=== PATIENT | female | born 1940 | race Caucasian/White ===

== ENCOUNTER → 2021-05-25 11:46 | Outpatient (BNVA) | payer MEDICARE, SELFPAY | PROVIDERS: PCP Nurse Practitioner Family; Visit Provider Nurse Practitioner Family | DX: R07.89 Other chest pain (principal); E78.5 Hyperlipidemia, unspecified; I10 Essential (primary) hypertension | CPT/HCPCS: 80053; 80061 ==

== ENCOUNTER → 2021-07-07 09:13 | Outpatient (BNVA) | payer MEDICARE, SELFPAY | PROVIDERS: PCP Nurse Practitioner Family; Referring Provider Physical Medicine & Rehabilitation; Visit Provider Anesthesiology Pain Medicine | DX: M51.16 Intervertebral disc disorders with radiculopathy, lumbar region (principal); M79.604 Pain in right leg; Z87.891 Personal history of nicotine dependence | CPT/HCPCS: 99204 ==

== ENCOUNTER → 2021-07-23 13:13 | Outpatient (BNVA) | payer MEDICARE, SELFPAY | PROVIDERS: PCP Nurse Practitioner Family; Visit Provider Internal Medicine | DX: R07.89 Other chest pain (principal); J44.9 Chronic obstructive pulmonary disease, unspecified; I10 Essential (primary) hypertension; Z87.891 Personal history of nicotine dependence | CPT/HCPCS: 93005; 99204 ==

== ENCOUNTER 2021-08-20 08:43 | Outpatient (CLI) | payer MEDICARE, SELFPAY ==
[2021-08-20 09:10] VITALS: BMI 31.6
--- NOTE | 2021-08-20 09:10 | ECG_ITS ---
[facility] Test Date: 2021-08-20 Pat Name: Jenifer Shannon Department: Room: Gender: Female Karate Teacher: : 1940 Requested By: Ronald Olvera Order Number: [id number] Boy MD: Ronald Olvera M.D. Interpretive Statements NAME OF STUDY: LEXISCAN SESTAMIBI STRESS TEST INDICATION: [Chest Pain, ] Procedure: At the baseline, the blood pressure was 172/97 mmHg with a heart rate of 70 bpm. The electrocardiogram showed normal sinus rhythm, normal axis with normal ST and T's. The Lexiscan was infused over a period of 20 seconds. A total of 0.4 mg of Lexiscan was infused. The stress phase was continued for a total of 5 minutes. Heart rate was at the end of stress phase was 79 bpm and a blood pressure of 137/73 mmHg. The EKG at the peak infusion revealed since normal sinus rhythm with no significant ST-T wave changes. Sestamibi was injected 20 seconds after the Lexiscan infusion. Blood pressure at the end of recovery phase was 139/72 mmHg with a heart rate of 79 bpm. Conclusion: 1. Normal EKG response to Lexiscan infusion 2. No Lexiscan induced chest pain or cardiac arrhythmia. 3. Normal blood pressure and heart rate response. 4. Sestamibi/sestamibi perfusion scan pending; see separate report. Electronically Signed On 08-25-2021 14:23:35 CDT by Ronald Olvera M.D. [id number]
--- NOTE | 2021-08-20 09:11 | NMCV_ITS ---
NM lewis perf SPECT r/s* [id number] Jenifer Shannon Age: 81 Gender: F : 1940 Exam Date: 08/20/2021 10:27 Ordering Phys: Ronald Olvera M.D ([email or web address]) Technologist: LUCIA Mishra Exam Location: [facility] Indications: SHORTNESS OF BREATH STRESS TEST [facility] IMAGE PROTOCOL Rest/Stress 1 Lexiscan Day Radiopharmaceutical Dose (mCi) Administration Site Administered by Rest: Tc-99m 10.6 IV LUCIA Early Sestamibi Stress:Tc-99m 32.4 IV LUCIA Early Sestamibi Rest: 20-Aug-2021 60 Discovery 630 Stress: 20-Aug-2021 30 Discovery 630 0.4mg Lexiscan. Images obtained in supine and prone position. SPECT RESULTS Technical Quality: Excellent Raw Data Analysis: Normal Image Corrections: No attenuation or motion correction applied Summed Stress Score: 5 Summed Rest Score: 2 Summed Difference Score: 3 PERFUSION FINDINGS There is small to medium sized partially reversible perfusion defect seen in apical lateral and anterolateral ferrer. 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 FUNCTIONAL RESULTS (calculated via Gated SPECT) Stress Image LV EF (%): 74 Stress EDV (mL):68 TID: 1.06 Stress ESV (mL):18 FUNCTIONAL FINDINGS: There is normal left ventricular systolic function. IMPRESSIONS 1. 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 2. LV systolic function is normal Ronald Olvera MD (Electronically Signed) Final Date: 21 August 2021 23:58 S
[2021-08-20] MEDS: regadenoson 0.4 Mg/5 ml Syringe IVP (10:57)
[2021-08-20 11:20] VITALS: BP 138/73; PULSE 82
--- NOTE | 2021-08-20 12:15 | USCV_ITS ---
Jenifer Shannon Age: 81 Gender: F : 1940 Exam Date: 08/20/2021 09:25 Ordering Phys: Ronald Olvera M.D ([email or web address]) Technologist: Exam Location: [facility] [place] Indication: chest pain BP: 185 / 91 HR: 85 Rhythm: Sinus Technical Quality: Adequate MEASUREMENTS (Male / Female) Normal Values 2D ECHO LV Diastolic Diameter PLAX 3.9 cm 4.2 - 5.9 / 3.9 - 5.3 cm LV Systolic Diameter PLAX 2.4 cm IVS Diastolic Thickness 0.9 cm 0.6 - 1.0 / 0.6 - 0.9 cm IVS Systolic Thickness 1.8 cm LVPW Diastolic Thickness 1.3 cm 0.6 - 1.0 / 0.6 - 0.9 cm LVPW Systolic Thickness 1.5 cm LVOT Diameter 2.0 cm LV Ejection Fraction 2D Teich 69.9 % LV Ejection Fraction MOD 2C 77.6 % LV Ejection Fraction 2C AL 78.4 % LA Diameter 3.1 cm IVC Diameter 1.0 cm M-MODE Aortic Annulus Diameter 3.3 cm LA Ao Ratio MM 1.0 MV E Point Septal Separation 1.0 cm DOPPLER AV Peak Velocity 127.0 cm/s LVOT Peak Velocity 87.0 cm/s AV Area Cont Eq vti 1.8 cm squared AV Area Cont Eq pk 2.2 cm squared MV Area PHT 5.0 cm squared Mitral E to A Ratio 0.5 MV E' Velocity 27.5 cm/s Mitral E to MV E' Ratio 8.1 Mitral E to LV E' Lateral Ratio 8.4 Mitral E to LV E' Septal Ratio 8.0 TR Peak Velocity 148.7 cm/s TR Peak Gradient 8.8 mmHg TV Peak E Velocity 89.0 cm/s Right Atrial Pressure 3.0 mmHg Pulmonary Artery Systolic Pressu 11.8 mmHg FINDINGS Left Ventricle Normal left ventricular size. LV systolic function is normal with EF of 55-60%. No regional wall motion abnormalities. Grade 1 diastolic dysfunction Right Ventricle The right ventricle is normal in size and function. Right Atrium The right atrium is normal in size. Left Atrium The left atrium is normal in size. Mitral Valve Structurally normal mitral valve without significant stenosis or prolapse. There is no mitral regurgitation. Aortic Valve Structurally normal aortic valve without significant sclerosis or stenosis. There is no aortic regurgitation. Tricuspid Valve Structurally normal tricuspid valve without significant stenosis. Mild tricuspid regurgitation. Pulmonary artery systolic pressure is normal. Pulmonic Valve Not well visualized. Pericardium Normal pericardium without effusion. Aorta Normal ascending aorta dimension. IVC CONCLUSIONS LV systolic fucntion is normal with EF of 55-60% Grade 1 diastolic dysfunction Mild tricuspid regurgitation No comparison studies are available Ronald Olvera MD (Electronically Signed) Final Date: 22 August 2021 11:29 S
== END 2021-08-20 08:44 | disposition home or self-care (01) ==
LOC: CDL 08:51
PROVIDERS: PCP Nurse Practitioner Family; Visit Provider Internal Medicine
DX: R07.9 Chest pain, unspecified (principal); R06.02 Shortness of breath
CPT/HCPCS: 78452; 93017; 93306; A9500; J2785

== ENCOUNTER → 2021-10-07 13:32 | Outpatient (BNVA) | payer MEDICARE, SELFPAY | PROVIDERS: PCP Nurse Practitioner Family; Visit Provider Anesthesiology Pain Medicine | DX: M54.16 Radiculopathy, lumbar region (principal) | CPT/HCPCS: 64483; J1100; J3490 ==

== ENCOUNTER → 2021-10-27 10:20 | Outpatient (BNVA) | payer MEDICARE, SELFPAY | PROVIDERS: PCP Nurse Practitioner Family; Visit Provider Anesthesiology Pain Medicine | DX: M79.604 Pain in right leg (principal); M51.16 Intervertebral disc disorders with radiculopathy, lumbar region | CPT/HCPCS: 99214 ==

== ENCOUNTER → 2022-11-22 08:38 | Outpatient (BNVA) | payer MEDICARE, SELFPAY | PROVIDERS: PCP Nurse Practitioner Family; Visit Provider Nurse Practitioner Family | DX: I10 Essential (primary) hypertension (principal); E55.9 Vitamin D deficiency, unspecified; H54.7 Unspecified visual loss; H61.20 Impacted cerumen, unspecified ear | CPT/HCPCS: 80053; 80061; 82306 ==

== ENCOUNTER → 2022-11-25 15:54 | Outpatient (BNVA) | payer MEDICARE, SELFPAY | PROVIDERS: PCP Nurse Practitioner Family; Visit Provider Nurse Practitioner Family | DX: R73.9 Hyperglycemia, unspecified (principal) | CPT/HCPCS: 83036 ==

== ENCOUNTER 2023-01-24 13:24 | Outpatient (CLI) | payer MEDICARE, SELFPAY ==
--- NOTE | 2023-01-24 13:32 | MR_ITS ---
WS: [id number] MRI HEAD WITHOUT CONTRAST TECHNIQUE: Sagittal T1, T2 axial, T2 axial FLAIR, axial and coronal T1 images, axial susceptibility w eighted imaging, axial diffusion weighted images, and coronal T2 images were obtained. CLINICAL INFORMATION: H54.7 - Unspecified visual loss COMPARISON: None. FINDINGS: No evidence of restricted diffusion to suggest acute ischemia. Ventricular system and basilar cistern s are patent. Advanced small vessel changes with moderate parenchymal volume loss. Small vessel rene es in the rachael. Tiny lacunar infarcts or prominent perivascular spaces RIGHT basal ganglia. Normal po sterior fossa. Normal vascular flow voids at the skull base. No extra-axial fluid collections. No jesse dence of mass or mass effect. Mild mucosal thickening in the mastoid air cells. Normal normal optic chiasm and pituitary infundibulum. Moderate symmetric atrophy temporal lobes gemma ocampal formations. 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 IMPRESSION: 1. No evidence of restricted diffusion to suggest acute ischemia. 2. Advanced small vessel changes with moderate parenchymal volume loss. 3. No hemosiderin on susceptibly weighted images. 4. Mild mucosal thickening in the mastoid tips bilaterally.
== END 2023-01-24 13:25 | disposition home or self-care (01) ==
LOC: RAD 13:24
PROVIDERS: PCP Nurse Practitioner Family; Visit Provider Nurse Practitioner Family
DX: H54.7 Unspecified visual loss (principal); I67.89 Other cerebrovascular disease; G31.89 Other specified degenerative diseases of nervous system
CPT/HCPCS: 70551

== ENCOUNTER → 2023-04-07 08:17 | Outpatient (BNVA) | payer MEDICARE, SELFPAY | PROVIDERS: PCP Nurse Practitioner Family; Visit Provider Psychiatry & Neurology Neurology | DX: I99.8 Other disorder of circulatory system (principal) | CPT/HCPCS: 99202 ==

== ENCOUNTER → 2023-10-06 08:18 | Outpatient (BNVA) | payer MEDICARE, SELFPAY | PROVIDERS: PCP Nurse Practitioner Family; Visit Provider Nurse Practitioner Family | DX: R73.09 Other abnormal glucose (principal) | CPT/HCPCS: 80053; 80061; 83036 ==

== ENCOUNTER → 2024-03-26 11:39 | Outpatient (BNVA) | payer MEDICARE, SELFPAY | PROVIDERS: PCP Nurse Practitioner Family; Visit Provider Nurse Practitioner Family | DX: I10 Essential (primary) hypertension (principal) | CPT/HCPCS: 80053; 80061 ==

== ENCOUNTER → 2024-04-05 14:06 | Outpatient (BNVA) | payer MEDICARE, SELFPAY | PROVIDERS: PCP Nurse Practitioner Family; Visit Provider Nurse Practitioner Family | DX: E11.9 Type 2 diabetes mellitus without complications (principal) | CPT/HCPCS: 83036 ==

== ENCOUNTER → 2024-04-19 13:14 | Outpatient (BNVA) | payer MEDICARE, SELFPAY | PROVIDERS: PCP Nurse Practitioner Family; Visit Provider Nurse Practitioner Family | DX: R68.89 Other general symptoms and signs (principal) | CPT/HCPCS: 87400 ==

== ENCOUNTER 2024-07-11 06:16 | Outpatient (CLI) | payer MEDICARE, SELFPAY ==
--- NOTE | 2024-07-11 | ECG_ITS ---
Vizibility Test Date: 2024-07-11 Pat Name: Jenifer Shannon Department: Room: Gender: Female Inventory Control Coordinator: : 1940 Requested By: Nia Gardiner Order Number: [id number] Boy MD: Freedom Guzman M.D. Interpretive Statements Lung unchanged pre/post procedure; Intraprocedure shortess of breath; Symptoms resoled by discharge PROCEDURE: At the baseline, the EKG revealed normal sinus rhythm with left axis deviation. Poor R wave progression. Nonspecific T wave changes.. The baseline heart was 70 bpm with a blood pressue of 161/84 mm of Hg Lexiscan was infused over a period of 20 seconds. A total of 0.4 milligrams of Lexiscan was infused. The stress phase was continued for a total of 5 minutes. Heart rate at the end of the stress phase was 78 bpm with a blood pressure 142/74 mm of Hg. The EKG at the peak infusion revealed no significant changes. Sestamibi was injected 20 seconds after the Lexiscan infusion. Heart rate at the end of the recovery phase was 77 bpm with a blood pressure of 148/73 mm of Hg. CONCLUSION: 1. No significant EKG changes with the LexiScan infusion 2. No LexiScan induced chest pain or cardiac arrhythmia 3. Normal blood pressure and heart rate response 4. Sestamibi/sestamibi perfusion scan pending; see separate report. Electronically Signed On 07-16-2024 14:09:26 CDT by Freedom Guzman M.D. [email or web address] [id number]
[2024-07-11 06:43] VITALS: BMI 27.4
--- NOTE | 2024-07-11 06:45 | NMCV_ITS ---
NM lewis perf SPECT r/s* [id number] Jenifer Shannon Age: 84 Gender: F : 1940 Exam Date: 07/11/2024 07:27 Ordering Phys: Nia GardinerP Technologist: LUCIA Michaels Exam Location: [facility] Indications: cp STRESS TEST Please see separate stress test report in [facility] for full findings IMAGE PROTOCOL Rest/Stress 1 Lexiscan Day Radiopharmaceutical Dose (mCi) Administration Site Administered by Rest: Tc-99m 10.9 IV Martha Gray, HOUSE MOVING SUPERVISOR Sestamibi Stress:Tc-99m 32.8 IV Martha Mariogle, HOUSE MOVING SUPERVISOR Sestamibi Rest: 11-Jul-2024 60 Discovery 630 Stress: 11-Jul-2024 30 Discovery 630 0.4mg Lexiscan. Supine position only as patient was unable to lay prone. SPECT RESULTS Technical Quality: Good Raw Data Analysis: Normal Image Corrections: No attenuation or motion correction applied Summed Stress Score: 1 Summed Rest Score: 1 Summed Difference Score: 0 PERFUSION FINDINGS A small area of slightly decreased tracer uptake was noted in the mid inferolateral region segment. No reversibility was noted in this area FUNCTIONAL RESULTS (calculated via Gated SPECT) Stress Image LV EF (%): 81 Stress EDV (mL):69 TID: 1.07 Stress ESV (mL):13 FUNCTIONAL FINDINGS: Segmental wall motion analysis revealing no gross wall motion abnormalities IMPRESSIONS 1. Myocardial perfusion imaging revealing a small area of slightly decreased persistent tracer uptake in the mid inferolateral segment most likely represent attenuation artifact. 2. Normal LV ejection fraction of 81%. 3. LV wall motion analysis revealing no gross wall motion abnormalities. 4. Normal LV volume Low probability for coronary ischemia, based on the above findings Dr Freedom Guzman MD FAC (Electronically Signed) Final Date: 11 Jul 2024 22:08 S
[2024-07-11] MEDS: regadenoson 0.4 Mg/5 ml Syringe IVP (07:55)
[2024-07-11] MEDS: amlodipine 5 mg Tablet PO (08:07)
--- NOTE | 2024-07-11 08:09 | PC.NURSE ---
BP pre stress test. Pt here for Lexiscan mibi. Pre stress test BP consistently running 190's 200's/90's. Pt reports taking all BP medications this AM, including amlodipine, clonidine, and lisinopril. Dr. Guzman notified per protocol for systolic> 180. Verbal orders received to give amlodipine 5mg PO X 1 dose and to wait 30 minutes before proceeding with stress test.
[2024-07-11 08:51] VITALS: BP 148/73; PULSE 77
== END 2024-07-11 06:17 | disposition home or self-care (01) ==
LOC: CDL 06:17
PROVIDERS: PCP Nurse Practitioner Family; Visit Provider Nurse Practitioner Family
DX: R07.89 Other chest pain (principal); R93.1 Abnormal findings on diagnostic imaging of heart and coronary circulation
CPT/HCPCS: 36415; 78452; 93017; 96374; A9500; J2785; J9999